=== PATIENT | male | born 1945 | race Asian ===

== ENCOUNTER 2018-07-27 11:22 | Emergency (ER) | payer OTHER ==
[~2018-07-27] VITALS: Ht 167.6 cm; Wt 93.2 kg
[2018-07-27] MEDS ORDERED: RIVA20TA PO (11:55)
[2018-07-27] MEDS ORDERED: TIOT185 IH (11:55)
[2018-07-27] MEDS ORDERED: MONT10TA21 PO (11:55)
[2018-07-27] MEDS ORDERED: GABA-529 PO (11:55)
[2018-07-27] MEDS ORDERED: GLIM2 PO (11:55)
[2018-07-27] MEDS ORDERED: LINA5TAB PO (11:55)
[2018-07-27] MEDS ORDERED: CLON.2 PO (11:55)
[2018-07-27] MEDS ORDERED: CARV25 PO (11:55)
[2018-07-27] MEDS ORDERED: ADV250 IH (11:55)
[2018-07-27] MEDS ORDERED: LOSA50TA64 PO (11:55)
[2018-07-27] MEDS ORDERED: ATOR40TA28 PO (11:55)
[2018-07-27] MEDS ORDERED: HYDR-2924 PO (11:55)
[2018-07-27 12:37] LABS: BASOPHILS % (AUTO) 0.4 % (0.0-2.0); HEMATOCRIT 23.1 % (41-53); LYMPHOCYTES # (AUTO) 1.3 K/uL (1.0-4.8); LYMPHOCYTES % (AUTO) 11.6 % (22.0-44.0); MEAN CORPUSCULAR HEMOGLOBIN 17.7 pg (26.0-34.0); MEAN CORPUSCULAR HGB CONC 27.9 G/dL (31.0-37.0); MEAN CORPUSCULAR VOLUME 63 fL (80-100); MONOCYTES % (AUTO) 8.7 % (2.0-9.0); NEUTROPHILS # (AUTO) 8.8 K/uL (1.8-7.7); NEUTROPHILS % (AUTO) 78.3 % (40.0-70.0); PLATELET COUNT (AUTO) 211 K/uL (150-450); RED BLOOD CELL COUNT(AUTO) 3.64 MIL/uL (4.50-5.90); RED CELL DISTRIBUTION WIDTH 23.1 % (11.5-14.5)
[2018-07-27 12:48] LABS: HEMOGLOBIN 6.4 g/dL (13.5-17.5)
[2018-07-27 12:50] LABS: CALCIUM, TOTAL 8.4 mg/dL (8.8-10.5); CREATININE 1.6 mg/dL (0.60-1.30); POTASSIUM 4.3 mmol/L (3.5-5.1)
[2018-07-27 12:54] LABS: ALBUMIN 3.3 g/dL (3.4-5.0); BILIRUBIN,TOTAL 1.2 mg/dL (0.1-1.0); TOTAL PROTEIN, SERUM 7.1 g/dL (6.4-8.2)
[2018-07-27 13:10] LABS: PLATELET MORPHOLOGY COMMENT GIANT PLTS PRESENT
[2018-07-27] MEDS ORDERED: 0.9% SODIUM CHLORIDE 10 ML SYRINGE IVP PRN (13:45)
[2018-07-27] MEDS ORDERED: ACETAMINOPHEN 325 MG TABLET PO PRN (13:45)
[2018-07-27] MEDS ORDERED: ONDANSETRON HCL 4 MG/2 ML VIAL IVP PRN (13:45)
[2018-07-27] MEDS ORDERED: SODIUM CHLORIDE 0.9% 1,000 ML IV ONE (15:14)
[2018-07-27 15:25] VITALS: BP 196/161
[2018-07-27 15:45] VITALS: BP 176/107
[2018-07-27 16:00] VITALS: BP 174/83
[2018-07-27 16:15] VITALS: BP 199/109
[2018-07-27 16:34] LABS: APPEARANCE,URINE CLEAR (CLEAR); BILIRUBIN,URINE NEGATIVE (NEGATIVE); GLUCOSE, URINE (UA) NEGATIVE (NEGATIVE); KETONES,URINE NEGATIVE (NEGATIVE); LEUKOCYTE ESTERASE ,URINE NEGATIVE (NEGATIVE); NITRATE,URINE NEGATIVE (NEGATIVE); OCCULT BLOOD,URINE NEGATIVE (NEGATIVE); PH,URINE 5.5 (5.0-8.0); PROTEIN,URINE NEGATIVE (NEGATIVE); UROBILINOGEN,URINE 0.2 mg/dL (<=1.0)
[2018-07-27] MEDS: HydrALAZINE HCL 25 MG TABLET PO ONE (16:38)
[2018-07-27] MEDS: CloNIDine HCL 0.2 MG TABLET PO ONE (16:38)
[2018-07-27 16:57] VITALS: BP 177/84
== END 2018-07-27 18:05 | disposition home or self-care (01) ==
LOC: EDSEX 11:23 → EMS 11:23
DX: R06.02 Shortness of breath (principal); D64.9 Anemia, unspecified; I12.9 Hypertensive chronic kidney disease with stage 1 through stage 4 chronic kidney disease, or unspecified chronic kidney disease; E11.22 Type 2 diabetes mellitus with diabetic chronic kidney disease; N18.9 Chronic kidney disease, unspecified; E78.00 Pure hypercholesterolemia, unspecified; J44.9 Chronic obstructive pulmonary disease, unspecified; Z79.899 Other long term (current) drug therapy
CPT/HCPCS: 36415; 36430; 71046; 80053; 81003; 82550; 82962; 83880; 84484; 85025; 86850; 86900; 86901; 86920; 93005; 99285; J7030; P9016

== ENCOUNTER 2018-08-07 09:27 | Inpatient (IN) | payer OTHER ==
[~2018-08-07] VITALS: Ht 175.3 cm; Wt 109.3 kg
[~2018-08-07 09:27] MED LIST: ADV250 IH; ATOR40TA28 PO; CARV25 PO; CLON.2 PO; GABA-529 PO; GLIM2 PO; HYDR-2924 PO; LINA5TAB PO; LOSA50TA64 PO; MONT10TA21 PO; RIVA20TA PO; TIOT185 IH
[2018-08-07] MEDS ORDERED: [UNRECOGNIZED DRUG - OTHER] IV SCH (09:45)
[2018-08-07] MEDS ORDERED: LIDOCAINE IV SCH (09:45)
[2018-08-07 10:00] LABS: ABG A-A DIFF O2 357.8 mmHg (10-20.0); ABG BASE EXCESS -4.6 mmol/L (-2.0-3.0); ABG CARBOXYHEMOGLOBIN 2.4 % (0.0-1.5); ABG HCO3 20.5 mmol/L (22.0-26.0); ABG METHEMOGLOBIN 0.8 % (0.0-1.5); ABG OXYGEN CONTENT 13.5 mL/dL (15.0-23.0); ABG OXYGEN SATURATION 99.6 % (95.0-98.0); ABG OXYHEMOGLOBIN 96.4 % (94.0-100.0); ABG PCO2 53 mmHg (35-45); ABG PH 7.248 (7.35-7.450); ABG TOTAL HEMOGLOBIN 9.3 G/dL (12.0-18.0); PO2, ARTERIAL BG 308.5 mmHg (75.0-83.0); SOURCE, BLOOD GAS ARTERIAL; TEMPERATURE, FAHRENHEIT, BG 94.3 FAHREN (96.0-98.6)
[2018-08-07 10:01] LABS: O2 DEVICE,BLOOD GAS VENTILATOR (ROOM AIR); PEEP,BG 5 cm H2O; SITE, BLOOD GAS RT RADIAL; VT, ABG 500 ml
[2018-08-07] MEDS ORDERED: PIPERACILLIN/TAZO 3.375 GM/D5W 50 ML IV ONE (10:30)
[2018-08-07] MEDS ORDERED: NOREPINEPHRINE 4 MG/D5%-WATER 250 ML IV PRN (11:15)
[2018-08-07] MEDS ORDERED: SODIUM CHLORIDE 0.9% 1,000 ML IV ONE ×2 (11:15)
[2018-08-07] MEDS: DOPamine HCL 400 MG/D5%-WATER 250 ML IV PRN ×2 (11:23→15:39)
[2018-08-07 11:53] LABS: BASOPHILS % (AUTO) 0.7 % (0.0-2.0); EOSINOPHILS % (AUTO) 0 % (1.0-6.0); HEMOGLOBIN 9.5 g/dL (13.5-17.5); LYMPHOCYTES # (AUTO) 0.3 K/uL (1.0-4.8); LYMPHOCYTES % (AUTO) 1.9 % (22.0-44.0); MEAN CORPUSCULAR HEMOGLOBIN 21.5 pg (26.0-34.0); MEAN CORPUSCULAR HGB CONC 27.8 G/dL (31.0-37.0); MEAN CORPUSCULAR VOLUME 77 fL (80-100); MONOCYTES # (AUTO) 0.9 K/uL (0.1-1.0); MONOCYTES % (AUTO) 5.3 % (2.0-9.0); NEUTROPHILS # (AUTO) 15.7 K/uL (1.8-7.7); PLATELET COUNT (AUTO) 207 K/uL (150-450); RED CELL DISTRIBUTION WIDTH 33.3 % (11.5-14.5)
[2018-08-07 11:59] LABS: NEUTROPHILS % (AUTO) 92.1 % (40.0-70.0)
[2018-08-07 12:19] LABS: INR 1.6 (0.9-1.1); PROTHROMBIN TIME 16.2 SEC (9.4-11.6)
[2018-08-07 12:39] LABS: LACTIC ACID 5.7 mmol/L (0.4-2.0)
[2018-08-07 12:53] LABS: ALBUMIN 2.6 g/dL (3.4-5.0); BILIRUBIN,TOTAL 0.9 mg/dL (0.1-1.0); CALCIUM, TOTAL 7.7 mg/dL (8.8-10.5); CREATININE 2.47 mg/dL (0.60-1.30)
[2018-08-07 12:55] LABS: POTASSIUM 6.6 mmol/L (3.5-5.1)
[2018-08-07] MEDS ORDERED: CALCIUM GLUCONATE 100 MG/ML 10 ML IVP ONE (13:15)
[2018-08-07] MEDS ORDERED: INSULIN REGULAR, HUMAN 100 UNITS/ML SQ ONE (13:15)
[2018-08-07] MEDS ORDERED: ALBUTEROL SULFATE 2.5 MG/0.5 ML NEB SOLUTION NEB ONE (13:15)
[2018-08-07] MEDS ORDERED: DEXTROSE 50%-WATER 25 GM/50 ML SYRINGE IVP ONE ×2 (13:15)
[2018-08-07] MEDS ORDERED: INSULIN REGULAR, HUMAN 100 UNITS/ML IVP ONE (13:15)
[2018-08-07] MEDS ORDERED: 0.9% SODIUM CHLORIDE 10 ML SYRINGE IVP PRN ×2 (13:45→20:45)
[2018-08-07] MEDS ORDERED: ACETAMINOPHEN 325 MG TABLET PO PRN (13:45)
[2018-08-07 14:07] LABS: CALCIUM, TOTAL 9.6 mg/dL (8.8-10.5); CREATININE 2.5 mg/dL (0.60-1.30); POTASSIUM 5.8 mmol/L (3.5-5.1)
[2018-08-07] MEDS ORDERED: SODIUM POLYSTYRENE SULFONATE 15 GM/60 ML SUSPENSION BOTTLE PO ONE (14:30)
[2018-08-07 15:39] LABS: AMPHET/METH SCREEN,URINE NEGATIVE (NEGATIVE); APPEARANCE,URINE CLOUDY (CLEAR); BARBITURATE SCREEN, URINE NEGATIVE (NEGATIVE); BENZODIAZEPINES SCREEN,URINE NEGATIVE (NEGATIVE); BILIRUBIN,URINE NEGATIVE (NEGATIVE); CANNABINOID SCREEN,URINE NEGATIVE (NEGATIVE); COCAINE SCREEN,URINE NEGATIVE (NEGATIVE); GLUCOSE, URINE (UA) 500 mg/dL (NEGATIVE); KETONES,URINE NEGATIVE (NEGATIVE); LEUKOCYTE ESTERASE ,URINE TRACE (NEGATIVE); METHADONE SCREEN, URINE NEGATIVE (NEGATIVE); NITRATE,URINE NEGATIVE (NEGATIVE); OCCULT BLOOD,URINE LARGE (NEGATIVE); OPIATE SCREEN,URINE NEGATIVE (NEGATIVE); PROTEIN,URINE SEE CONFIRM (NEGATIVE); UROBILINOGEN,URINE 0.2 mg/dL (<=1.0)
[2018-08-07 15:42] LABS: PHENCYCLIDINE SCREEN,URINE NEGATIVE (NEGATIVE)
[2018-08-07 15:49] LABS: SULFOSALICYLIC ACID,URINE 3+ (Negative)
[2018-08-07 15:50] LABS: RBC,URINE >100 /HPF (0-2)
[2018-08-07 15:51] LABS: BACTERIA,URINE Few /HPF (None Seen); SQUAMOUS EPITHELIAL CELL,UR Few /LPF (None Seen)
[2018-08-07] MEDS ORDERED: SODIUM CHLORIDE 0.9% 500 ML IV ONE (16:44)
[2018-08-07] MEDS: PIPERACILLIN SODIUM/TAZOBACTAM 2.25 GM in DEXTROSE 5%-WATER 50 ML IV SCH (18:20)
[2018-08-07] MEDS ORDERED: RINGERS SOLUTION,LACTATED 1,000 ML IV ONE (20:00)
[2018-08-07] MEDS ORDERED: SODIUM POLYSTYRENE SULFONATE 15 GM/60 ML SUSPENSION BOTTLE NG ONE (21:00)
[2018-08-07] MEDS: PANTOPRAZOLE SODIUM 40 MG/VIAL IVP SCH (21:21)
[2018-08-07] MEDS ORDERED: PROPOFOL 1000 MG/ISO-OSM 100 ML IV PRN ×2 (21:58→22:00)
[2018-08-07] MEDS: PROPOFOL 1000 MG/ISO-OSM 100 ML IV PRN (22:26)
[2018-08-07 23:08] LABS: CALCIUM, TOTAL 6.9 mg/dL (8.8-10.5); CREATININE 2.69 mg/dL (0.60-1.30)
[2018-08-07] MEDS: ACETAMINOPHEN 325 MG TABLET PO PRN (23:56)
[2018-08-08] MEDS: PIPERACILLIN SODIUM/TAZOBACTAM 2.25 GM in DEXTROSE 5%-WATER 50 ML IV SCH ×5 (00:44→23:58)
[2018-08-08 02:15] LABS: ABG A-A DIFF O2 176.4 mmHg (10-20.0); ABG BASE EXCESS 3.9 mmol/L (-2.0-3.0); ABG CARBOXYHEMOGLOBIN 1.3 % (0.0-1.5); ABG HCO3 27.6 mmol/L (22.0-26.0); ABG METHEMOGLOBIN 0.5 % (0.0-1.5); ABG OXYGEN CONTENT 14.3 mL/dL (15.0-23.0); ABG OXYGEN SATURATION 99.2 % (95.0-98.0); ABG OXYHEMOGLOBIN 97.4 % (94.0-100.0); ABG PCO2 39 mmHg (35-45); ABG PH 7.465 (7.35-7.450); ABG TOTAL HEMOGLOBIN 10.2 G/dL (12.0-18.0); PO2, ARTERIAL BG 140.4 mmHg (75.0-83.0); SOURCE, BLOOD GAS ARTERIAL
[2018-08-08 02:17] LABS: SITE, BLOOD GAS ARTERIAL LINE
[2018-08-08 02:40] LABS: O2 DEVICE,BLOOD GAS VENTILATOR (ROOM AIR); PEEP,BG 5 cm H2O; VT, ABG 500 ml
[2018-08-08] MEDS ORDERED: NOREPINEPHRINE 4 MG/D5%-WATER 250 ML IV PRN ×2 (02:54)
[2018-08-08] MEDS: DOPamine HCL 400 MG/D5%-WATER 250 ML IV PRN (04:07)
[2018-08-08 06:36] LABS: CALCIUM, TOTAL 7.8 mg/dL (8.8-10.5); CREATININE 3.3 mg/dL (0.60-1.30); POTASSIUM 5.6 mmol/L (3.5-5.1)
[2018-08-08 07:10] LABS: BASOPHILS % (AUTO) 0.1 % (0.0-2.0); EOSINOPHILS % (AUTO) 0 % (1.0-6.0); HEMATOCRIT 32.5 % (41-53); HEMOGLOBIN 9.4 g/dL (13.5-17.5); LYMPHOCYTES % (AUTO) 4.7 % (22.0-44.0); MEAN CORPUSCULAR HEMOGLOBIN 21.3 pg (26.0-34.0); MEAN CORPUSCULAR HGB CONC 28.9 G/dL (31.0-37.0); MEAN CORPUSCULAR VOLUME 74 fL (80-100); MONOCYTES # (AUTO) 1.3 K/uL (0.1-1.0); MONOCYTES % (AUTO) 6.5 % (2.0-9.0); NEUTROPHILS # (AUTO) 18.1 K/uL (1.8-7.7); PLATELET COUNT (AUTO) 233 K/uL (150-450); RED BLOOD CELL COUNT(AUTO) 4.41 MIL/uL (4.50-5.90); RED CELL DISTRIBUTION WIDTH 34.8 % (11.5-14.5)
[2018-08-08 07:14] LABS: NEUTROPHILS % (AUTO) 88.7 % (40.0-70.0)
[2018-08-08 08:53] LABS: ALBUMIN 2.3 g/dL (3.4-5.0); BILIRUBIN,TOTAL 0.9 mg/dL (0.1-1.0); CALCIUM, TOTAL 7.8 mg/dL (8.8-10.5); CREATININE 3.47 mg/dL (0.60-1.30); MAGNESIUM 2.2 mg/dL (1.80-2.40); PHOSPHORUS 4.3 mg/dL (2.5-4.9); POTASSIUM 5.7 mmol/L (3.5-5.1); TOTAL PROTEIN, SERUM 5.5 g/dL (6.4-8.2)
[2018-08-08 09:18] LABS: ABG A-A DIFF O2 152.4 mmHg (10-20.0); ABG BASE EXCESS 2.9 mmol/L (-2.0-3.0); ABG CARBOXYHEMOGLOBIN 1.7 % (0.0-1.5); ABG HCO3 26.7 mmol/L (22.0-26.0); ABG METHEMOGLOBIN 0.6 % (0.0-1.5); ABG OXYGEN CONTENT 12.9 mL/dL (15.0-23.0); ABG OXYHEMOGLOBIN 93.8 % (94.0-100.0); ABG PCO2 46 mmHg (35-45); ABG PH 7.402 (7.35-7.450); ABG TOTAL HEMOGLOBIN 9.7 G/dL (12.0-18.0); PO2, ARTERIAL BG 80.5 mmHg (75.0-83.0); SOURCE, BLOOD GAS ARTERIAL; TEMPERATURE, FAHRENHEIT, BG 98.6 FAHREN (96.0-98.6)
[2018-08-08 09:19] LABS: O2 DEVICE,BLOOD GAS VENTILATOR (ROOM AIR); PEEP,BG 5 cm H2O; SITE, BLOOD GAS ART LINE; VT, ABG 500 ml
[2018-08-08] MEDS ORDERED: RINGERS SOLUTION,LACTATED 1,000 ML IV ONE (09:40)
[2018-08-08] MEDS: PANTOPRAZOLE SODIUM 40 MG/VIAL IVP SCH (09:53)
[2018-08-08] MEDS ORDERED: [UNRECOGNIZED DRUG - OTHER] IV SCH ×5 (11:45)
[2018-08-08] MEDS ORDERED: SODIUM BICARBONATE IV SCH ×5 (11:45)
[2018-08-08] MEDS ORDERED: CALCIUM GLUCONATE IV SCH ×5 (11:45)
[2018-08-08] MEDS ORDERED: POTASSIUM CHLORIDE IV SCH ×5 (11:45)
[2018-08-08 12:00] VITALS: BP 91/55
[2018-08-08 15:17] LABS: ALBUMIN 2.3 g/dL (3.4-5.0); BILIRUBIN,TOTAL 0.7 mg/dL (0.1-1.0); CALCIUM, TOTAL 7.8 mg/dL (8.8-10.5); CREATININE 3.62 mg/dL (0.60-1.30); MAGNESIUM 2.2 mg/dL (1.80-2.40); PHOSPHORUS 4.6 mg/dL (2.5-4.9); POTASSIUM 5.1 mmol/L (3.5-5.1); TOTAL PROTEIN, SERUM 5.4 g/dL (6.4-8.2)
[2018-08-08] MEDS: PROPOFOL 1000 MG/ISO-OSM 100 ML IV PRN (15:21)
[2018-08-08 16:00] VITALS: BP 116/65
[2018-08-08] MEDS ORDERED: HEPARIN SODIUM,PORCINE 1,000 UNITS/ML VIAL ONE (17:49)
[2018-08-08] MEDS: SODIUM CHLORIDE 0.9% 1,000 ML IV SCH (17:53)
[2018-08-08 20:00] VITALS: BP 124/50
[2018-08-08 20:15] LABS: ABG A-A DIFF O2 182.7 mmHg (10-20.0); ABG BASE EXCESS 3.6 mmol/L (-2.0-3.0); ABG CARBOXYHEMOGLOBIN 1.9 % (0.0-1.5); ABG HCO3 27.4 mmol/L (22.0-26.0); ABG METHEMOGLOBIN 0.1 % (0.0-1.5); ABG OXYGEN CONTENT 12.2 mL/dL (15.0-23.0); ABG OXYGEN SATURATION 96.1 % (95.0-98.0); ABG OXYHEMOGLOBIN 94.2 % (94.0-100.0); ABG PCO2 36 mmHg (35-45); ABG PH 7.494 (7.35-7.450); ABG TOTAL HEMOGLOBIN 9.1 G/dL (12.0-18.0); PO2, ARTERIAL BG 64.3 mmHg (75.0-83.0); SOURCE, BLOOD GAS ARTERIAL; TEMPERATURE, FAHRENHEIT, BG 93.2 FAHREN (96.0-98.6)
[2018-08-08 20:17] LABS: O2 DEVICE,BLOOD GAS VENTILATOR (ROOM AIR); PEEP,BG 5 cm H2O; SITE, BLOOD GAS ARTERIAL LINE; VT, ABG 500 ml
[2018-08-08 21:25] LABS: ALBUMIN 2.1 g/dL (3.4-5.0); BILIRUBIN,TOTAL 0.8 mg/dL (0.1-1.0); CREATININE 3.71 mg/dL (0.60-1.30); MAGNESIUM 2.3 mg/dL (1.80-2.40); PHOSPHORUS 4.7 mg/dL (2.5-4.9); POTASSIUM 5.2 mmol/L (3.5-5.1); TOTAL PROTEIN, SERUM 5.2 g/dL (6.4-8.2)
[2018-08-09] VITALS: BP 119/51
[2018-08-09 04:00] VITALS: BP 106/45
[2018-08-09] MEDS: PROPOFOL 1000 MG/ISO-OSM 100 ML IV PRN ×2 (04:26→14:43)
[2018-08-09 05:43] LABS: ALBUMIN 2.2 g/dL (3.4-5.0); BILIRUBIN,TOTAL 0.7 mg/dL (0.1-1.0); CALCIUM, TOTAL 7.7 mg/dL (8.8-10.5); CREATININE 4.08 mg/dL (0.60-1.30); MAGNESIUM 2.2 mg/dL (1.80-2.40); PHOSPHORUS 5.3 mg/dL (2.5-4.9); POTASSIUM 5.3 mmol/L (3.5-5.1); TOTAL PROTEIN, SERUM 5.4 g/dL (6.4-8.2)
[2018-08-09] MEDS ORDERED: ACETAMINOPHEN 500 MG TABLET PO SCH (06:00)
[2018-08-09] MEDS: PIPERACILLIN SODIUM/TAZOBACTAM 2.25 GM in DEXTROSE 5%-WATER 50 ML IV SCH ×3 (06:06→17:19)
[2018-08-09 08:00] VITALS: BP 102/42
[2018-08-09] MEDS: SODIUM CHLORIDE 0.9% 1,000 ML IV SCH (08:04)
[2018-08-09] MEDS: PANTOPRAZOLE SODIUM 40 MG/VIAL IVP SCH (08:05)
[2018-08-09] MEDS ORDERED: BUMETANIDE 0.25 MG/ML 4 ML VIAL IVP ONE (08:45)
[2018-08-09 09:46] LABS: ABG A-A DIFF O2 157.6 mmHg (10-20.0); ABG BASE EXCESS 1.6 mmol/L (-2.0-3.0); ABG CARBOXYHEMOGLOBIN 1.3 % (0.0-1.5); ABG HCO3 25.9 mmol/L (22.0-26.0); ABG METHEMOGLOBIN 0.3 % (0.0-1.5); ABG OXYGEN CONTENT 12.7 mL/dL (15.0-23.0); ABG OXYGEN SATURATION 96.7 % (95.0-98.0); ABG OXYHEMOGLOBIN 95.2 % (94.0-100.0); ABG PCO2 36 mmHg (35-45); ABG PH 7.463 (7.35-7.450); ABG TOTAL HEMOGLOBIN 9.4 G/dL (12.0-18.0); PO2, ARTERIAL BG 86.6 mmHg (75.0-83.0); SOURCE, BLOOD GAS ARTERIAL; TEMPERATURE, FAHRENHEIT, BG 97.6 FAHREN (96.0-98.6)
[2018-08-09 09:47] LABS: O2 DEVICE,BLOOD GAS VENTILATOR (ROOM AIR); PEEP,BG 5 cm H2O; SITE, BLOOD GAS ARTERIAL LINE; VT, ABG 500 ml
[2018-08-09 10:04] LABS: GLUCOSE,POINT OF CARE 251 MG/DL (70-110)
[2018-08-09 12:00] VITALS: BP 107/34
[2018-08-09] MEDS ORDERED: SODIUM CHLORIDE 0.9% 500 ML IV ONE (14:40)
[2018-08-09] MEDS: DOPamine HCL 400 MG/D5%-WATER 250 ML IV PRN (14:43)
[2018-08-09 15:16] LABS: HEMATOCRIT 28.1 % (41-53); HEMOGLOBIN 8.2 g/dL (13.5-17.5); MEAN CORPUSCULAR HEMOGLOBIN 21.5 pg (26.0-34.0); MEAN CORPUSCULAR HGB CONC 29.1 G/dL (31.0-37.0); MEAN CORPUSCULAR VOLUME 74 fL (80-100); PLATELET COUNT (AUTO) 213 K/uL (150-450); RED BLOOD CELL COUNT(AUTO) 3.81 MIL/uL (4.50-5.90); RED CELL DISTRIBUTION WIDTH 36.2 % (11.5-14.5)
[2018-08-09 16:00] VITALS: BP 113/50
[2018-08-09 17:23] LABS: BAND NEUTROPHILS % (MANUAL) 5 % (0-5); LYMPHOCYTES % (MANUAL) 5 % (22-44); MONOCYTES % (MANUAL) 6 % (2-9); SEGMENTED NEUTROPHILS % 84 % (40-70)
[2018-08-09 20:00] VITALS: BP 120/49
[2018-08-10] VITALS: BP 102/50
[2018-08-10] MEDS: PIPERACILLIN SODIUM/TAZOBACTAM 2.25 GM in DEXTROSE 5%-WATER 50 ML IV SCH ×4 (00:27→21:03)
[2018-08-10] MEDS: DOPamine HCL 400 MG/D5%-WATER 250 ML IV PRN ×3 (00:28→20:58)
[2018-08-10] MEDS: PROPOFOL 1000 MG/ISO-OSM 100 ML IV PRN ×3 (00:29→20:59)
[2018-08-10 04:00] VITALS: BP 120/50
[2018-08-10 05:05] LABS: BASOPHILS % (AUTO) 0.9 % (0.0-2.0); EOSINOPHILS % (AUTO) 0.4 % (1.0-6.0); HEMATOCRIT 28.8 % (41-53); HEMOGLOBIN 8.5 g/dL (13.5-17.5); LYMPHOCYTES # (AUTO) 1.4 K/uL (1.0-4.8); LYMPHOCYTES % (AUTO) 8.6 % (22.0-44.0); MEAN CORPUSCULAR HEMOGLOBIN 21.9 pg (26.0-34.0); MEAN CORPUSCULAR HGB CONC 29.7 G/dL (31.0-37.0); MEAN CORPUSCULAR VOLUME 74 fL (80-100); MONOCYTES # (AUTO) 1.5 K/uL (0.1-1.0); MONOCYTES % (AUTO) 9.7 % (2.0-9.0); NEUTROPHILS # (AUTO) 12.7 K/uL (1.8-7.7); NEUTROPHILS % (AUTO) 80.4 % (40.0-70.0); PLATELET COUNT (AUTO) 235 K/uL (150-450); RED CELL DISTRIBUTION WIDTH 36.1 % (11.5-14.5)
[2018-08-10 05:56] LABS: ALBUMIN 2.2 g/dL (3.4-5.0); BILIRUBIN,TOTAL 0.7 mg/dL (0.1-1.0); CALCIUM, TOTAL 7.9 mg/dL (8.8-10.5); CREATININE 5.25 mg/dL (0.60-1.30); MAGNESIUM 2.4 mg/dL (1.80-2.40); POTASSIUM 5.1 mmol/L (3.5-5.1); TOTAL PROTEIN, SERUM 5.9 g/dL (6.4-8.2)
[2018-08-10] MEDS ORDERED: SODIUM CHLORIDE 0.9% 500 ML IV ONE ×2 (06:25→13:49)
[2018-08-10 08:00] VITALS: BP 103/45
[2018-08-10] MEDS: PANTOPRAZOLE SODIUM 40 MG/VIAL IVP SCH (08:31)
[2018-08-10 12:00] VITALS: BP 107/60
[2018-08-10] MEDS ORDERED: BUMETANIDE 0.25 MG/ML 4 ML VIAL IVP ONE (12:30)
[2018-08-10] MEDS: ACETAMINOPHEN 325 MG TABLET PO PRN ×2 (12:36→17:43)
[2018-08-10 16:00] VITALS: BP 126/51
[2018-08-10 20:00] VITALS: BP 125/46
[2018-08-10] MEDS ORDERED: SODIUM CHLORIDE 0.9% 250 ML IV ONE (21:07)
[2018-08-11] VITALS: BP 156/49
[2018-08-11 04:00] VITALS: BP 150/54
[2018-08-11 05:06] LABS: BASOPHILS % (AUTO) 0.3 % (0.0-2.0); EOSINOPHILS % (AUTO) 0.6 % (1.0-6.0); HEMATOCRIT 26.2 % (41-53); HEMOGLOBIN 7.9 g/dL (13.5-17.5); LYMPHOCYTES # (AUTO) 1.1 K/uL (1.0-4.8); LYMPHOCYTES % (AUTO) 9.3 % (22.0-44.0); MEAN CORPUSCULAR HEMOGLOBIN 22.3 pg (26.0-34.0); MEAN CORPUSCULAR HGB CONC 30.2 G/dL (31.0-37.0); MEAN CORPUSCULAR VOLUME 74 fL (80-100); MONOCYTES # (AUTO) 1.6 K/uL (0.1-1.0); MONOCYTES % (AUTO) 12.9 % (2.0-9.0); NEUTROPHILS # (AUTO) 9.5 K/uL (1.8-7.7); NEUTROPHILS % (AUTO) 76.9 % (40.0-70.0); PLATELET COUNT (AUTO) 207 K/uL (150-450); RED BLOOD CELL COUNT(AUTO) 3.55 MIL/uL (4.50-5.90); RED CELL DISTRIBUTION WIDTH 35.2 % (11.5-14.5)
[2018-08-11 05:15] LABS: ALBUMIN 2.1 g/dL (3.4-5.0); BILIRUBIN,TOTAL 0.8 mg/dL (0.1-1.0); CALCIUM, TOTAL 7.9 mg/dL (8.8-10.5); CREATININE 6.42 mg/dL (0.60-1.30); MAGNESIUM 2.5 mg/dL (1.80-2.40); POTASSIUM 4.9 mmol/L (3.5-5.1); TOTAL PROTEIN, SERUM 5.8 g/dL (6.4-8.2)
[2018-08-11] MEDS ORDERED: DEXTROSE 50%-WATER 25 GM/50 ML SYRINGE IVP ONE ×2 (05:26→06:00)
[2018-08-11] MEDS: PIPERACILLIN SODIUM/TAZOBACTAM 2.25 GM in DEXTROSE 5%-WATER 50 ML IV SCH ×3 (05:55→20:13)
[2018-08-11 08:00] VITALS: BP 123/39
[2018-08-11 08:04] LABS: GLUCOSE,POINT OF CARE 66 MG/DL (70-110)
[2018-08-11 08:04] LABS: GLUCOSE,POINT OF CARE 177 MG/DL (70-110)
[2018-08-11] MEDS: PANTOPRAZOLE SODIUM 40 MG/VIAL IVP SCH (08:11)
[2018-08-11 12:00] VITALS: BP 121/44
[2018-08-11 12:09] LABS: GLUCOSE,POINT OF CARE 56 MG/DL (70-110)
[2018-08-11 12:09] LABS: GLUCOSE,POINT OF CARE 118 MG/DL (70-110)
[2018-08-11] MEDS: PROPOFOL 1000 MG/ISO-OSM 100 ML IV PRN ×2 (12:19→17:23)
[2018-08-11 12:58] LABS: GLUCOSE,POINT OF CARE 60 MG/DL (70-110)
[2018-08-11 12:58] LABS: GLUCOSE,POINT OF CARE 146 MG/DL (70-110)
[2018-08-11] MEDS ORDERED: SODIUM CHLORIDE 0.9% 500 ML IV ONE (15:20)
[2018-08-11 16:00] VITALS: BP 136/46
[2018-08-11] MEDS ORDERED: HEPARIN SODIUM,PORCINE 5,000 UNITS/ML VIAL SQ ONE (17:44)
[2018-08-11] MEDS ORDERED: DEXTROSE 50%-WATER 25 GM/50 ML SYRINGE IVP PRN (18:30)
[2018-08-11 20:00] VITALS: BP 118/43
[2018-08-11 22:39] LABS: GLUCOSE,POINT OF CARE 75 MG/DL (70-110)
[2018-08-11] MEDS ORDERED: SODIUM CHLORIDE 0.9% 250 ML IV ONE (23:23)
[2018-08-12] VITALS: BP 123/49
[2018-08-12] MEDS: PROPOFOL 1000 MG/ISO-OSM 100 ML IV PRN ×3 (03:39→22:57)
[2018-08-12 04:00] VITALS: BP 120/62
[2018-08-12] MEDS: PIPERACILLIN SODIUM/TAZOBACTAM 2.25 GM in DEXTROSE 5%-WATER 50 ML IV SCH ×3 (04:23→20:45)
[2018-08-12 05:19] LABS: GLUCOSE,POINT OF CARE 72 MG/DL (70-110)
[2018-08-12 05:49] LABS: CALCIUM, TOTAL 7.8 mg/dL (8.8-10.5); CREATININE 5.04 mg/dL (0.60-1.30); POTASSIUM 4.8 mmol/L (3.5-5.1)
[2018-08-12 08:00] VITALS: BP 141/60
[2018-08-12 08:14] LABS: GLUCOSE,POINT OF CARE 85 MG/DL (70-110)
[2018-08-12] MEDS ORDERED: SODIUM CHLORIDE 0.9% 1,000 ML IV ONE (08:47)
[2018-08-12] MEDS ORDERED: HydrALAZINE HCL 20 MG/ML VIAL IVP ONE (10:00)
[2018-08-12] MEDS: HydrALAZINE HCL 25 MG TABLET PO SCH ×3 (10:11→20:10)
[2018-08-12] MEDS: METOPROLOL TARTRATE 25 MG TABLET PO SCH ×2 (10:11→20:11)
[2018-08-12 12:00] VITALS: BP 193/88
[2018-08-12] MEDS: HydrALAZINE HCL 20 MG/ML VIAL IVP PRN (14:29)
[2018-08-12] MEDS: PANTOPRAZOLE SODIUM 40 MG/VIAL IVP SCH (14:38)
[2018-08-12 15:24] LABS: GLUCOSE,POINT OF CARE 109 MG/DL (70-110)
[2018-08-12 16:00] VITALS: BP 163/57
[2018-08-12] MEDS ORDERED: HEPARIN SODIUM,PORCINE 1,000 UNITS/ML VIAL IVP ONE (16:50)
[2018-08-12 19:19] LABS: GLUCOSE,POINT OF CARE 175 MG/DL (70-110)
[2018-08-12 20:00] VITALS: BP 161/51
[2018-08-12] MEDS ORDERED: SODIUM CHLORIDE 0.9% 500 ML IV ONE (20:17)
[2018-08-12] MEDS ORDERED: SODIUM CHLORIDE 0.9% 250 ML IV ONE (20:17)
[2018-08-13] VITALS: BP 111/50
[2018-08-13 00:39] LABS: GLUCOSE,POINT OF CARE 176 MG/DL (70-110)
[2018-08-13 04:00] VITALS: BP 177/51
[2018-08-13] MEDS: PROPOFOL 1000 MG/ISO-OSM 100 ML IV PRN ×5 (04:15→22:50)
[2018-08-13] MEDS: PIPERACILLIN SODIUM/TAZOBACTAM 2.25 GM in DEXTROSE 5%-WATER 50 ML IV SCH ×3 (04:56→20:08)
[2018-08-13 05:07] LABS: BASOPHILS % (AUTO) 0.4 % (0.0-2.0); EOSINOPHILS % (AUTO) 1.5 % (1.0-6.0); HEMATOCRIT 23.9 % (41-53); HEMOGLOBIN 7.6 g/dL (13.5-17.5); LYMPHOCYTES # (AUTO) 0.5 K/uL (1.0-4.8); LYMPHOCYTES % (AUTO) 4.2 % (22.0-44.0); MEAN CORPUSCULAR HEMOGLOBIN 23.7 pg (26.0-34.0); MEAN CORPUSCULAR HGB CONC 31.9 G/dL (31.0-37.0); MEAN CORPUSCULAR VOLUME 74 fL (80-100); MONOCYTES # (AUTO) 1.3 K/uL (0.1-1.0); MONOCYTES % (AUTO) 11.1 % (2.0-9.0); NEUTROPHILS # (AUTO) 9.6 K/uL (1.8-7.7); NEUTROPHILS % (AUTO) 82.8 % (40.0-70.0); PLATELET COUNT (AUTO) 169 K/uL (150-450); RED BLOOD CELL COUNT(AUTO) 3.21 MIL/uL (4.50-5.90); RED CELL DISTRIBUTION WIDTH 35.1 % (11.5-14.5)
[2018-08-13 05:33] LABS: CALCIUM, TOTAL 7.7 mg/dL (8.8-10.5); CREATININE 4.26 mg/dL (0.60-1.30); PHOSPHORUS 6.6 mg/dL (2.5-4.9); POTASSIUM 4.7 mmol/L (3.5-5.1)
[2018-08-13 06:16] LABS: PLATELET MORPHOLOGY COMMENT GIANT PLTS PRESENT
[2018-08-13] MEDS: PANTOPRAZOLE SODIUM 40 MG/VIAL IVP SCH (07:58)
[2018-08-13 08:00] VITALS: BP 147/89
[2018-08-13 08:30] LABS: GLUCOSE,POINT OF CARE 172 MG/DL (70-110)
[2018-08-13] MEDS: METOPROLOL TARTRATE 25 MG TABLET PO SCH ×2 (08:42→20:08)
[2018-08-13] MEDS: HydrALAZINE HCL 25 MG TABLET PO SCH ×3 (08:42→20:08)
[2018-08-13] MEDS ORDERED: ALBUTEROL SULFATE 2.5 MG/0.5 ML NEB SOLUTION NEB PRN (09:15)
[2018-08-13] MEDS ORDERED: IPRATROPIUM BROMIDE 0.5 MG/2.5 ML NEB SOLUTION NEB PRN (09:15)
[2018-08-13 10:43] LABS: ABG A-A DIFF O2 170.3 mmHg (10-20.0); ABG BASE EXCESS 1.5 mmol/L (-2.0-3.0); ABG CARBOXYHEMOGLOBIN 2.1 % (0.0-1.5); ABG HCO3 25.7 mmol/L (22.0-26.0); ABG METHEMOGLOBIN 0.7 % (0.0-1.5); ABG OXYGEN CONTENT 10.5 mL/dL (15.0-23.0); ABG OXYGEN SATURATION 93.9 % (95.0-98.0); ABG OXYHEMOGLOBIN 91.3 % (94.0-100.0); ABG PCO2 41 mmHg (35-45); ABG PH 7.419 (7.35-7.450); ABG TOTAL HEMOGLOBIN 8.1 G/dL (12.0-18.0); PO2, ARTERIAL BG 68.2 mmHg (75.0-83.0); SOURCE, BLOOD GAS ARTERIAL; TEMPERATURE, FAHRENHEIT, BG 97.7 FAHREN (96.0-98.6)
[2018-08-13 10:46] LABS: O2 DEVICE,BLOOD GAS VENTILATOR (ROOM AIR); SITE, BLOOD GAS ARTERIAL LINE; VT, ABG 500 ml
[2018-08-13 10:47] LABS: PEEP,BG 5 cm H2O
[2018-08-13 12:00] VITALS: BP 138/65
[2018-08-13 16:00] VITALS: BP 149/65
[2018-08-13 17:44] LABS: GLUCOSE,POINT OF CARE 148 MG/DL (70-110)
[2018-08-13 17:44] LABS: GLUCOSE,POINT OF CARE 130 MG/DL (70-110)
[2018-08-13 20:00] VITALS: BP 136/75
[2018-08-14] VITALS (8 sets, daily range): BP systolic 118–196; BP diastolic 64–96
[2018-08-14 00:40] LABS: GLUCOSE,POINT OF CARE 161 MG/DL (70-110)
[2018-08-14] MEDS: HydrALAZINE HCL 20 MG/ML VIAL IVP PRN ×3 (04:02→18:05)
[2018-08-14] MEDS: PIPERACILLIN SODIUM/TAZOBACTAM 2.25 GM in DEXTROSE 5%-WATER 50 ML IV SCH ×3 (04:41→20:06)
[2018-08-14] MEDS: PROPOFOL 1000 MG/ISO-OSM 100 ML IV PRN ×4 (04:42→21:14)
[2018-08-14 04:51] LABS: BASOPHILS % (AUTO) 0.4 % (0.0-2.0); EOSINOPHILS % (AUTO) 1.8 % (1.0-6.0); HEMATOCRIT 27.4 % (41-53); HEMOGLOBIN 8.4 g/dL (13.5-17.5); LYMPHOCYTES # (AUTO) 1.5 K/uL (1.0-4.8); LYMPHOCYTES % (AUTO) 10.1 % (22.0-44.0); MEAN CORPUSCULAR HEMOGLOBIN 22.7 pg (26.0-34.0); MEAN CORPUSCULAR HGB CONC 30.7 G/dL (31.0-37.0); MEAN CORPUSCULAR VOLUME 74 fL (80-100); MONOCYTES # (AUTO) 1.4 K/uL (0.1-1.0); MONOCYTES % (AUTO) 9.4 % (2.0-9.0); NEUTROPHILS # (AUTO) 11.6 K/uL (1.8-7.7); NEUTROPHILS % (AUTO) 78.3 % (40.0-70.0); PLATELET COUNT (AUTO) 211 K/uL (150-450); RED BLOOD CELL COUNT(AUTO) 3.72 MIL/uL (4.50-5.90); RED CELL DISTRIBUTION WIDTH 34.6 % (11.5-14.5)
[2018-08-14] MEDS ORDERED: SODIUM CHLORIDE 0.9% 250 ML IV ONE (05:00)
[2018-08-14 05:09] LABS: CALCIUM, TOTAL 8.3 mg/dL (8.8-10.5); CREATININE 4.75 mg/dL (0.60-1.30); MAGNESIUM 2.3 mg/dL (1.80-2.40); PHOSPHORUS 7.7 mg/dL (2.5-4.9); POTASSIUM 4.9 mmol/L (3.5-5.1)
[2018-08-14 06:55] LABS: GLUCOSE,POINT OF CARE 162 MG/DL (70-110)
[2018-08-14] MEDS: PANTOPRAZOLE SODIUM 40 MG/VIAL IVP SCH (08:13)
[2018-08-14] MEDS: HydrALAZINE HCL 25 MG TABLET PO SCH ×3 (08:13→20:06)
[2018-08-14] MEDS: METOPROLOL TARTRATE 25 MG TABLET PO SCH ×2 (08:14→20:06)
[2018-08-14] MEDS ORDERED: SODIUM CHLORIDE 0.9% 1,000 ML IV ONE (12:51)
[2018-08-14 13:14] LABS: GLUCOSE,POINT OF CARE 138 MG/DL (70-110)
[2018-08-14] MEDS ORDERED: HEPARIN SODIUM,PORCINE 1,000 UNITS/ML VIAL IVP ONE (16:52)
[2018-08-14 18:29] LABS: GLUCOSE,POINT OF CARE 124 MG/DL (70-110)
[2018-08-15] VITALS: BP 150/74
[2018-08-15] MEDS: PROPOFOL 1000 MG/ISO-OSM 100 ML IV PRN ×4 (02:10→15:57)
[2018-08-15] MEDS: HydrALAZINE HCL 20 MG/ML VIAL IVP PRN (02:13)
[2018-08-15] MEDS ORDERED: SODIUM CHLORIDE 0.9% 250 ML IV ONE (03:46)
[2018-08-15 04:00] VITALS: BP 133/64
[2018-08-15] MEDS: PIPERACILLIN SODIUM/TAZOBACTAM 2.25 GM in DEXTROSE 5%-WATER 50 ML IV SCH ×3 (04:34→20:09)
[2018-08-15 05:13] LABS: BASOPHILS % (AUTO) 0.3 % (0.0-2.0); EOSINOPHILS % (AUTO) 2.4 % (1.0-6.0); HEMATOCRIT 25.9 % (41-53); LYMPHOCYTES # (AUTO) 1.1 K/uL (1.0-4.8); LYMPHOCYTES % (AUTO) 7.8 % (22.0-44.0); MEAN CORPUSCULAR HEMOGLOBIN 23.3 pg (26.0-34.0); MEAN CORPUSCULAR VOLUME 75 fL (80-100); MONOCYTES # (AUTO) 1.2 K/uL (0.1-1.0); MONOCYTES % (AUTO) 8.3 % (2.0-9.0); NEUTROPHILS # (AUTO) 11.6 K/uL (1.8-7.7); NEUTROPHILS % (AUTO) 81.2 % (40.0-70.0); PLATELET COUNT (AUTO) 220 K/uL (150-450); RED BLOOD CELL COUNT(AUTO) 3.46 MIL/uL (4.50-5.90); RED CELL DISTRIBUTION WIDTH 34.9 % (11.5-14.5)
[2018-08-15 05:30] LABS: CALCIUM, TOTAL 8.2 mg/dL (8.8-10.5); CREATININE 3.33 mg/dL (0.60-1.30); MAGNESIUM 1.8 mg/dL (1.80-2.40); PHOSPHORUS 5.3 mg/dL (2.5-4.9); POTASSIUM 4.4 mmol/L (3.5-5.1)
[2018-08-15 06:00] LABS: GLUCOSE,POINT OF CARE 147 MG/DL (70-110)
[2018-08-15 06:45] LABS: GLUCOSE,POINT OF CARE 149 MG/DL (70-110)
[2018-08-15 07:07] LABS: PLATELET MORPHOLOGY COMMENT LARGE PLTS PRESENT
[2018-08-15 08:00] VITALS: BP 154/76
[2018-08-15] MEDS: HydrALAZINE HCL 25 MG TABLET PO SCH ×3 (08:34→20:10)
[2018-08-15] MEDS: METOPROLOL TARTRATE 25 MG TABLET PO SCH ×2 (08:34→20:10)
[2018-08-15] MEDS: PANTOPRAZOLE SODIUM 40 MG/VIAL IVP SCH (08:34)
[2018-08-15 12:00] VITALS: BP 157/75
[2018-08-15 12:35] LABS: GLUCOSE,POINT OF CARE 113 MG/DL (70-110)
[2018-08-15 16:00] VITALS: BP 142/67
[2018-08-15 18:15] LABS: GLUCOSE,POINT OF CARE 143 MG/DL (70-110)
[2018-08-15 20:00] VITALS: BP 183/100
[2018-08-15] MEDS: DOCUSATE SODIUM 100 MG CAPSULE PO SCH (20:10)
[2018-08-15] MEDS: AmLODIPine BESYLATE 5 MG TABLET PO SCH (20:10)
[2018-08-15] MEDS: MAGNESIUM HYDROXIDE SUSPENSION 30 ML UDCUP PO PRN (20:16)
[2018-08-15] MEDS ORDERED: SODIUM CHLORIDE 0.9% 500 ML IV ONE (23:00)
[2018-08-16] VITALS: BP 141/66
[2018-08-16 00:10] LABS: GLUCOSE,POINT OF CARE 127 MG/DL (70-110)
[2018-08-16] MEDS: PROPOFOL 1000 MG/ISO-OSM 100 ML IV PRN ×4 (02:44→21:24)
[2018-08-16 04:00] VITALS: BP 128/66
[2018-08-16] MEDS: PIPERACILLIN SODIUM/TAZOBACTAM 2.25 GM in DEXTROSE 5%-WATER 50 ML IV SCH ×3 (04:10→21:13)
[2018-08-16 04:56] LABS: BASOPHILS % (AUTO) 0.3 % (0.0-2.0); EOSINOPHILS % (AUTO) 2.6 % (1.0-6.0); HEMATOCRIT 24.9 % (41-53); HEMOGLOBIN 7.6 g/dL (13.5-17.5); LYMPHOCYTES # (AUTO) 1.3 K/uL (1.0-4.8); LYMPHOCYTES % (AUTO) 9.3 % (22.0-44.0); MEAN CORPUSCULAR HGB CONC 30.6 G/dL (31.0-37.0); MEAN CORPUSCULAR VOLUME 75 fL (80-100); MONOCYTES % (AUTO) 7.3 % (2.0-9.0); NEUTROPHILS % (AUTO) 80.5 % (40.0-70.0); PLATELET COUNT (AUTO) 219 K/uL (150-450); RED BLOOD CELL COUNT(AUTO) 3.32 MIL/uL (4.50-5.90)
[2018-08-16 05:04] LABS: CALCIUM, TOTAL 8.4 mg/dL (8.8-10.5); CREATININE 4.01 mg/dL (0.60-1.30); MAGNESIUM 2.4 mg/dL (1.80-2.40); POTASSIUM 4.8 mmol/L (3.5-5.1)
[2018-08-16 06:50] LABS: GLUCOSE,POINT OF CARE 134 MG/DL (70-110)
[2018-08-16 08:00] VITALS: BP 145/72
[2018-08-16] MEDS: METOPROLOL TARTRATE 25 MG TABLET PO SCH (09:00)
[2018-08-16] MEDS: HydrALAZINE HCL 25 MG TABLET PO SCH ×3 (09:00→21:00)
[2018-08-16] MEDS: AmLODIPine BESYLATE 5 MG TABLET PO SCH ×2 (09:00→21:00)
[2018-08-16] MEDS: PANTOPRAZOLE SODIUM 40 MG/VIAL IVP SCH (09:13)
[2018-08-16] MEDS: DOCUSATE SODIUM 100 MG CAPSULE PO SCH ×2 (09:13→21:15)
[2018-08-16 12:00] VITALS: BP 204/97
[2018-08-16] MEDS ORDERED: SODIUM CHLORIDE 0.9% 2,000 ML IV ONE (13:02)
[2018-08-16 16:00] VITALS: BP 90/48
[2018-08-16] MEDS ORDERED: NOREPINEPHRINE BITARTRATE 16 MG in DEXTROSE 5%-WATER 234 ML IV STA (17:17)
[2018-08-16] MEDS: NOREPINEPHRINE 4 MG/D5%-WATER 250 ML IV PRN (17:29)
[2018-08-16 20:00] VITALS: BP 155/75
[2018-08-17] VITALS: BP 135/75
[2018-08-17] MEDS ORDERED: SODIUM CHLORIDE 0.9% 250 ML IV ONE (00:49)
[2018-08-17] MEDS ORDERED: SODIUM CHLORIDE 0.9% 500 ML IV ONE (00:49)
[2018-08-17] MEDS: NOREPINEPHRINE 4 MG/D5%-WATER 250 ML IV PRN ×2 (01:30→19:26)
[2018-08-17 01:44] LABS: GLUCOSE,POINT OF CARE 167 MG/DL (70-110)
[2018-08-17 01:44] LABS: GLUCOSE,POINT OF CARE 115 MG/DL (70-110)
[2018-08-17 01:44] LABS: GLUCOSE,POINT OF CARE 99 MG/DL (70-110)
[2018-08-17 04:00] VITALS: BP 116/67
[2018-08-17] MEDS: PIPERACILLIN SODIUM/TAZOBACTAM 2.25 GM in DEXTROSE 5%-WATER 50 ML IV SCH ×3 (05:53→20:42)
[2018-08-17] MEDS: PROPOFOL 1000 MG/ISO-OSM 100 ML IV PRN (06:42)
[2018-08-17 07:29] LABS: GLUCOSE,POINT OF CARE 139 MG/DL (70-110)
[2018-08-17] MEDS: PANTOPRAZOLE SODIUM 40 MG/VIAL IVP SCH (07:47)
[2018-08-17] MEDS: MAGNESIUM HYDROXIDE SUSPENSION 30 ML UDCUP PO PRN (07:47)
[2018-08-17] MEDS: AmLODIPine BESYLATE 5 MG TABLET PO SCH ×2 (07:48→20:38)
[2018-08-17] MEDS: DOCUSATE SODIUM 100 MG CAPSULE PO SCH ×2 (07:48→20:41)
[2018-08-17] MEDS: HydrALAZINE HCL 25 MG TABLET PO SCH ×3 (07:48→20:38)
[2018-08-17 08:00] VITALS: BP 103/58
[2018-08-17 08:49] LABS: BASOPHILS % (AUTO) 0.9 % (0.0-2.0); HEMATOCRIT 22.5 % (41-53); HEMOGLOBIN 7.5 g/dL (13.5-17.5); LYMPHOCYTES # (AUTO) 1.2 K/uL (1.0-4.8); LYMPHOCYTES % (AUTO) 11.6 % (22.0-44.0); MEAN CORPUSCULAR HEMOGLOBIN 24.8 pg (26.0-34.0); MEAN CORPUSCULAR HGB CONC 33.3 G/dL (31.0-37.0); MEAN CORPUSCULAR VOLUME 75 fL (80-100); MONOCYTES # (AUTO) 0.9 K/uL (0.1-1.0); MONOCYTES % (AUTO) 8.2 % (2.0-9.0); NEUTROPHILS # (AUTO) 8.1 K/uL (1.8-7.7); NEUTROPHILS % (AUTO) 75.3 % (40.0-70.0); PLATELET COUNT (AUTO) 197 K/uL (150-450); RED BLOOD CELL COUNT(AUTO) 3.03 MIL/uL (4.50-5.90); RED CELL DISTRIBUTION WIDTH 34.1 % (11.5-14.5)
[2018-08-17 09:02] LABS: CALCIUM, TOTAL 8.3 mg/dL (8.8-10.5); CREATININE 3.12 mg/dL (0.60-1.30); MAGNESIUM 2.1 mg/dL (1.80-2.40); PHOSPHORUS 4.1 mg/dL (2.5-4.9); POTASSIUM 3.8 mmol/L (3.5-5.1)
[2018-08-17] MEDS ORDERED: SODIUM CHLORIDE 0.9% 2,000 ML IV ONE (09:21)
[2018-08-17 12:00] VITALS: BP 106/43
[2018-08-17] MEDS ORDERED: HEPARIN SODIUM,PORCINE 1,000 UNITS/ML VIAL IVP ONE ×2 (12:30)
[2018-08-17] MEDS ORDERED: MANNITOL 25%-12.5 GM/50 ML VIAL IVP PRN (12:30)
[2018-08-17 16:00] VITALS: BP 118/39
[2018-08-17 20:00] VITALS: BP 122/42
[2018-08-17 21:24] LABS: GLUCOSE,POINT OF CARE 132 MG/DL (70-110)
[2018-08-18] VITALS: BP 112/33
[2018-08-18 01:24] LABS: GLUCOSE,POINT OF CARE 160 MG/DL (70-110)
[2018-08-18 04:00] VITALS: BP 119/41
[2018-08-18] MEDS: PIPERACILLIN SODIUM/TAZOBACTAM 2.25 GM in DEXTROSE 5%-WATER 50 ML IV SCH ×3 (05:47→20:56)
[2018-08-18 06:59] LABS: GLUCOSE,POINT OF CARE 179 MG/DL (70-110)
[2018-08-18 08:00] VITALS: BP 97/37
[2018-08-18] MEDS: HydrALAZINE HCL 25 MG TABLET PO SCH ×3 (08:30→20:57)
[2018-08-18] MEDS: PANTOPRAZOLE SODIUM 40 MG/VIAL IVP SCH (08:30)
[2018-08-18] MEDS: DOCUSATE SODIUM 100 MG CAPSULE PO SCH ×2 (08:30→20:57)
[2018-08-18] MEDS: AmLODIPine BESYLATE 5 MG TABLET PO SCH ×2 (08:30→20:58)
[2018-08-18] MEDS ORDERED: EPOETIN ALFA 10,000 UNITS/ML VIAL SQ SCH (09:00)
[2018-08-18] MEDS: NOREPINEPHRINE 4 MG/D5%-WATER 250 ML IV PRN ×3 (10:11→23:29)
[2018-08-18 12:00] VITALS: BP 115/37
[2018-08-18] MEDS ORDERED: DEXTROSE 50%-WATER 25 GM/50 ML SYRINGE IVP PRN (12:15)
[2018-08-18] MEDS: INSULIN LISPRO 100 UNITS/ML SQ PRN ×2 (12:26→17:38)
[2018-08-18 13:34] LABS: GLUCOSE,POINT OF CARE 159 MG/DL (70-110)
[2018-08-18] MEDS ORDERED: SODIUM CHLORIDE 0.9% 250 ML IV ONE (15:16)
[2018-08-18 16:00] VITALS: BP 111/37
[2018-08-18] MEDS ORDERED: HEPARIN SODIUM,PORCINE 1,000 UNITS/ML VIAL IVP ONE (17:26)
[2018-08-18] MEDS ORDERED: MANNITOL 25%-12.5 GM/50 ML VIAL IVP ONE (17:26)
[2018-08-18] MEDS ORDERED: ALBUMIN HUMAN 25%-12.5GM/50ML IV BOTTLE IV ONE (17:26)
[2018-08-18 18:36] LABS: GLUCOSE,POINT OF CARE 142 MG/DL (70-110)
[2018-08-18 20:00] VITALS: BP 125/37
[2018-08-18] MEDS: PHENYLEPHRINE 200 MG/D5%-WATER 250 ML IV PRN (22:41)
[2018-08-19] VITALS: BP 113/41
[2018-08-19] MEDS: INSULIN LISPRO 100 UNITS/ML SQ PRN ×3 (01:05→18:14)
[2018-08-19] MEDS: VASOPRESSIN 40 UNITS in DEXTROSE 5%-WATER 98 ML IV PRN ×2 (01:06→14:00)
[2018-08-19] MEDS: NOREPINEPHRINE 4 MG/D5%-WATER 250 ML IV PRN ×6 (03:04→20:45)
[2018-08-19 03:19] LABS: GLUCOSE,POINT OF CARE 182 MG/DL (70-110)
[2018-08-19 04:00] VITALS: BP 92/51
[2018-08-19] MEDS: PIPERACILLIN SODIUM/TAZOBACTAM 2.25 GM in DEXTROSE 5%-WATER 50 ML IV SCH ×3 (05:19→20:44)
[2018-08-19 06:54] LABS: GLUCOSE,POINT OF CARE 196 MG/DL (70-110)
[2018-08-19 08:00] VITALS: BP 62/39
[2018-08-19] MEDS: HydrALAZINE HCL 25 MG TABLET PO SCH ×3 (08:41→20:04)
[2018-08-19] MEDS: AmLODIPine BESYLATE 5 MG TABLET PO SCH ×2 (08:42→20:04)
[2018-08-19] MEDS ORDERED: SODIUM CHLORIDE 0.9% 500 ML IV ONE (09:17)
[2018-08-19] MEDS: PANTOPRAZOLE SODIUM 40 MG/VIAL IVP SCH (09:19)
[2018-08-19] MEDS: DOCUSATE SODIUM 100 MG CAPSULE PO SCH ×2 (09:19→20:51)
[2018-08-19 10:41] LABS: CREATININE 4.47 mg/dL (0.60-1.30); POTASSIUM 4.9 mmol/L (3.5-5.1)
[2018-08-19 10:46] LABS: ALBUMIN 1.5 g/dL (3.4-5.0); BILIRUBIN,TOTAL 2.5 mg/dL (0.1-1.0)
[2018-08-19] MEDS: PHENYLEPHRINE 200 MG/D5%-WATER 250 ML IV PRN ×2 (11:14→23:16)
[2018-08-19 12:00] VITALS: BP 63/37
[2018-08-19 12:59] LABS: GLUCOSE,POINT OF CARE 192 MG/DL (70-110)
[2018-08-19] MEDS: ACETAMINOPHEN 325 MG TABLET PO PRN (15:43)
[2018-08-19 16:00] VITALS: BP 66/38
[2018-08-19 17:50] LABS: GLUCOSE,POINT OF CARE 179 MG/DL (70-110)
[2018-08-19 20:00] VITALS: BP 91/58
[2018-08-20] VITALS: BP 88/50
[2018-08-20 01:04] LABS: GLUCOSE,POINT OF CARE 178 MG/DL (70-110)
[2018-08-20] MEDS: NOREPINEPHRINE 4 MG/D5%-WATER 250 ML IV PRN (03:28)
[2018-08-20 04:00] VITALS: BP 75/43
[2018-08-20] MEDS ORDERED: MORPHINE SULFATE 100 MG/NS/PF 100 ML IV PRN (04:45)
[2018-08-20] MEDS: PIPERACILLIN SODIUM/TAZOBACTAM 2.25 GM in DEXTROSE 5%-WATER 50 ML IV SCH (04:51)
== END 2018-08-20 10:30 | disposition expired | DRG 870 ==
LOC: EDUNIT# 09:27 → EMS 09:35 → ICU 08-08 09:54
PROVIDERS: ADMIT Internal Medicine; ATTEND Internal Medicine
PROC: 5A1955Z Respiratory Ventilation, Greater than 96 Consecutive Hours (ICD-10-PCS; principal; 2018-08-08)
PROC: 0BH17EZ Insertion of Endotracheal Airway into Trachea, Via Natural or Artificial Opening (ICD-10-PCS; 2018-08-08)
PROC: 02HV33Z Insertion of Infusion Device into Superior Vena Cava, Percutaneous Approach (ICD-10-PCS; 2018-08-08)
PROC: 5A12012 Performance of Cardiac Output, Single, Manual (ICD-10-PCS; 2018-08-08)
PROC: 5A1D70Z Performance of Urinary Filtration, Intermittent, Less than 6 Hours Per Day (ICD-10-PCS; 2018-08-09)
PROC: 5A1D70Z Performance of Urinary Filtration, Intermittent, Less than 6 Hours Per Day (ICD-10-PCS; 2018-08-12)
PROC: 5A1D70Z Performance of Urinary Filtration, Intermittent, Less than 6 Hours Per Day (ICD-10-PCS; 2018-08-14)
PROC: 5A1D70Z Performance of Urinary Filtration, Intermittent, Less than 6 Hours Per Day (ICD-10-PCS; 2018-08-16)
PROC: 5A1D70Z Performance of Urinary Filtration, Intermittent, Less than 6 Hours Per Day (ICD-10-PCS; 2018-08-17)
DX: A41.9 Sepsis, unspecified organism (principal); G93.6 Cerebral edema; I21.4 Non-ST elevation (NSTEMI) myocardial infarction; J96.01 Acute respiratory failure with hypoxia; N17.0 Acute kidney failure with tubular necrosis; N18.6 End stage renal disease; J69.0 Pneumonitis due to inhalation of food and vomit; G93.1 Anoxic brain damage, not elsewhere classified; I13.2 Hypertensive heart and chronic kidney disease with heart failure and with stage 5 chronic kidney disease, or end stage renal disease; R57.9 Shock, unspecified; Z99.11 Dependence on respirator [ventilator] status; I46.9 Cardiac arrest, cause unspecified; D63.1 Anemia in chronic kidney disease; E11.21 Type 2 diabetes mellitus with diabetic nephropathy; E11.22 Type 2 diabetes mellitus with diabetic chronic kidney disease; E11.649 Type 2 diabetes mellitus with hypoglycemia without coma; E78.00 Pure hypercholesterolemia, unspecified; E78.5 Hyperlipidemia, unspecified; E87.5 Hyperkalemia; G25.3 Myoclonus; I48.2 Chronic atrial fibrillation; I50.9 Heart failure, unspecified; J44.9 Chronic obstructive pulmonary disease, unspecified; M10.30 Gout due to renal impairment, unspecified site; M19.90 Unspecified osteoarthritis, unspecified site; Z79.01 Long term (current) use of anticoagulants; Z82.5 Family history of asthma and other chronic lower respiratory diseases; Z87.01 Personal history of pneumonia (recurrent); Z87.891 Personal history of nicotine dependence
CPT/HCPCS: 70450; 71250; 72192; 74150; 76705; 82805; 83605; 83735; 84100; 87040; 87081; 87340; 93005; 93306; 94002; 94003; 94640; 94644; 95816; 99291; C9113; G0378; J0360; J0610; J0885; J1265; J1644; J1815; J2150; J2270; J2370; J2543; J2704; J3490; J7030; J7040; J7050; J7060; J7120; P9047